=== PATIENT | female | born 1995 | race African-American/Black ===

== ENCOUNTER 2017-08-23 08:37 | Emergency (ER) | payer SELFPAY ==
[2017-08-23] MEDS ORDERED: cefTRIAXone\\ROCEPHIN 250 MG VIAL ONE (09:56)
[2017-08-23] MEDS ORDERED: Lidocaine 1% (PF) 30 ML VIAL ONE (09:56)
[2017-08-23] MEDS ORDERED: Azithromycin 250 MG TAB ONE (09:56)
[2017-08-23 09:59] LABS: Bilirubin Negative (Negative); Blood, Urine Small (Negative); Glucose, Urine (Dipstick) Negative (Negative); Ketone, Urine Negative (Negative); Nitrite Negative (Negative); Protein, Urine (Dipstick) Negative (Neg-Trace); Urobilinogen 0.2 mg/dL (0.2-1.0)
[2017-08-23 10:03] LABS: Bacteria/HPF None Seen HPF (None Seen); Hyaline Casts/LPF 0-3 HYALINE CAST LPF (0-3 Hyaline); RBC/HPF 0-3 HPF (0-3); WBC/HPF 0-3 HPF (0-3)
== END 2017-08-23 10:50 | disposition home or self-care (01) ==
LOC: ERS 08:37
DX: N89.8 Other specified noninflammatory disorders of vagina (principal)
CPT/HCPCS: 81003; 81015; 81025; 87480; 87491; 87510; 87591; 87660; 96372; J0696; J2001

== ENCOUNTER 2017-10-29 11:18 | Emergency (ER) | payer SELFPAY ==
[2017-10-29] MEDS ORDERED: Ondansetron ODT 4 MG TAB ONE (13:04)
[2017-10-29 14:34] LABS: Bilirubin Negative (Negative); Blood, Urine Negative (Negative); Clarity CLOUDY (Clear); Glucose, Urine (Dipstick) Negative (Negative); Leukocyte Negative (Negative); Nitrite Positive (Negative); Protein, Urine (Dipstick) Negative (Neg-Trace); Urobilinogen 0.2 mg/dL (0.2-1.0); pH, Urine 7.5 (5.0-9.0)
[2017-10-29 14:35] LABS: Pregnancy Test - Urine (BHCG) Negative (Negative)
[2017-10-29 14:36] LABS: Pregu Control Background? CLEAR/WHITE (CLR/WHITE); Pregu Control Bar Appear? YES (CONTROL BAR)
[2017-10-29 14:37] LABS: Bacteria/HPF 4+ HPF (None Seen); Hyaline Casts/LPF 0-3 HYALINE CAST LPF (0-3 Hyaline); WBC/HPF 0-3 HPF (0-3)
[2017-10-29 14:49] LABS: RBC/HPF 0-3 HPF (0-3); Renal Epithelial None Seen HPF (0-3); Squamous Epithelial 0-3 HPF (0-3); Transitional Epithelial NONE SEEN HPF (0-3)
== END 2017-10-29 14:46 | disposition left against medical advice (07) ==
LOC: ERS 11:18
DX: Z53.21 Procedure and treatment not carried out due to patient leaving prior to being seen by health care provider (principal)
CPT/HCPCS: 81003; 81015; 81025; 87804; Q0162

== ENCOUNTER 2017-10-29 16:46 | Inpatient (IN) | payer SELFPAY ==
[2017-10-29] MEDS ORDERED: Lorazepam 2 MG/ML VIAL ONE (16:54)
[2017-10-29] MEDS ORDERED: Vecuronium 10 MG VIAL ONE ×2 (17:30)
[2017-10-29 17:32] LABS: Hemoglobin 11.7 g/dL (12.0-16.0); Mean Corpuscular HGB CONC 33.1 g/dL (32.0-36.0); Mean Corpuscular Hemoglobin 27.9 pg (25.0-35.0); Mean Corpuscular Volume 84.3 fl (77.0-87.0); Mean Platelet Volume 7.6 fL (7.4-10.4); Platelet Count 237 thou/uL (130-400); RBC Distribution Width 12.1 % (11.5-14.5); Red Blood Cell (RBC) Count 4.18 mill/uL (4.00-5.20); White Blood Cell (WBC) Count 21.8 thou/uL (4.8-10.8)
[2017-10-29] MEDS ORDERED: Water For Inject, Bacteriostat 30 ML ONE (17:32)
[2017-10-29] MEDS ORDERED: Sterile Water 0 ML ONE (17:32)
[2017-10-29 17:37] LABS: BHCG - Serum Negative (NEGATIVE); Pregs Control Background? CLEAR/WHITE (CLR/WHITE); Pregs Control Bar Appear? YES (CONTROL BAR)
[2017-10-29 17:48] LABS: ALT (SGPT) 14 U/L (8-55); AST (SGOT) 15 U/L (5-34); Acetaminophen Less than 6.0 mcg/mL (10.0-30.0); Alcohol Less than 10 mg/dL (Less than 10); Alkaline Phosphatase 61 U/L (40-150); Anion Gap 19 mmol/L (10-20); BUN (Urea Nitrogen) 9 mg/dL (7.0-18.7); Bilirubin, Total 0.4 mg/dL (0.2-1.2); CK (CPK) 215 U/L (29-168); Calc. Creatinine Clearance 0 mL/min (70-130); Calcium 9.7 mg/dL (7.8-10.44); Carbon Dioxide 16 mmol/L (22-29); Chloride 101 mmol/L (98-107); Estimated GFR-MDRD Greater than 90; Globulin 3.6 g/dL (2.4-3.5); Glucose 178 mg/dL (70-105); Lipase 5 U/L (8-78); Protein, Total 7.6 g/dL (6.0-8.3); Salicylate Less than 8.0 mg/dL (15.0-30.0); Sodium 133 mmol/L (136-145)
[2017-10-29 17:51] LABS: CKMB 1.2 ng/mL (0-6.6); Troponin I Less than 0.010 ng/mL (< 0.028)
[2017-10-29 17:55] LABS: Band 17 % (5-11); Lymphocytes 8 % (28-48); MDiff Complete? YES; Monocytes 5 % (0-4); Neutrophil 70 % (31-61); PLT Morphology Comment Appears Adequate; Polychromasia SLIGHT = 2-3 cells (100X) (0-2/hpf)
[2017-10-29] MEDS ORDERED: Midazolam HCl 2 mg/2 ml Vial ONE (17:55)
[2017-10-29 17:57] LABS: Potassium 2.9 mmol/L (3.5-5.1)
[2017-10-29] MEDS ORDERED: cefTRIAXone\\ROCEPHIN 2 GM in Sodium Chloride 0.9% 100 ML IVPB SCH (18:00)
[2017-10-29] MEDS ORDERED: Dexamethasone 4 mg/ml Vial ONE (18:03)
[2017-10-29 18:04] LABS: Thyroid Stimulating Hormone 1.2106 uIU/mL (0.35-4.94)
--- NOTE | 2017-10-29 18:08 | RAD ---
AP VIEW OF THE CHEST: INDICATION: History of altered mental status. COMPARISON: None. IMPRESSION: No focal consolidation. COMMENTS: No comparisons are available. No pleural effusion or pneumothorax is evident. Cardiomediastinal aide houette is within normal limits. No acute osseous abnormality is evident. POS: [facility]
[2017-10-29] MEDS ORDERED: Norepinephrine 8 MG/0.9% NS 250 ML ONE (18:26)
[2017-10-29] MEDS ORDERED: Fosphenytoin Sodium 1,500 MG in Sodium Chloride 0.9% 100 ML IVPB SCH (18:30)
[2017-10-29 18:38] LABS: Actual Bicarbonate (HCO3a) 16.6 mEq/L (22-26); Base Excess (BEa) -6.8 mEq/L (0 (+/-) 2.5); CO2 Tension 25.9 mmHg (35.0-45.0); Hematocrit-ABG 30.2 % (34.0-44.0); Hemoglobin (Hb) 9.1 g/dL (11.4-15.4); O2 Tension (PaO2) 370.1 mmHg (80.0-100.0); pH, Arterial 7.42 (7.35-7.45)
[2017-10-29 18:39] LABS: ALV-art Gradient -45.475 (0-20); Analyzer IN Cardio ER; Puncture Site RR
[2017-10-29] MEDS ORDERED: Acyclovir Sodium 900 MG in Sodium Chloride 0.9% 250 ML 250 ML IVPB SCH (18:45)
[2017-10-29] MEDS ORDERED: fentaNYL Citrate/PF 2,000 MCG in Sodium Chloride 0.9% 60 ML IV SCH ×2 (18:45→21:49)
[2017-10-29 18:50] LABS: CSF Source CSF; Clarity Cloudy/Turbid (Clear); RBC Count - Manual 500 /cumm (None Seen); Tube # 4; WBC/NonHematics Count - Manual 4525 /cumm (0-5)
[2017-10-29 18:52] LABS: Color Of CSF Supernatant COLORLESS (Colorless); Tube # 2; Unspun CSF Color COLORLESS (Colorless)
[2017-10-29 18:56] LABS: CSF Source CSF; Clarity Cloudy/Turbid (Clear); Tube # 1
[2017-10-29 18:57] LABS: RBC Count - Manual 850 /cumm (None Seen); WBC/NonHematics Count - Manual 6775 /cumm (0-5)
--- NOTE | 2017-10-29 19:01 | RAD ---
AP VIEW OF THE CHEST 10/29/17 INDICATION: Altered mental status. COMPARISON: Prior exam dated 10/29/17. FINDINGS: Patient is now intubated from the comparison performed at 5:29 p.m. ET tube tip is seen 2.4 cm from the level of the jimi. There is a new left subclavian central venous catheter. No pneumothorax is grossly evident. There is a gastric catheter that projects below the left hemidiaphragm and beyond th e field of view. The lungs are clear. No pleural effusion is evident. No acute osseous abnormality is evident. IMPRESSION: 1. Interval intubation. 2. Left subclavian central venous catheter. 3. No pneumothorax. 4. No definite acute cardiopulmonary abnormality. POS: [facility]
[2017-10-29 19:04] LABS: CSF, Glucose Less than 5 mg/dl (40-70)
[2017-10-29 19:05] LABS: Bilirubin Negative (Negative); Blood, Urine Small (Negative); Clarity CLEAR (Clear); Glucose, Urine (Dipstick) 100 mg/dL (Negative); Leukocyte Negative (Negative); Nitrite Positive (Negative); Protein, Urine (Dipstick) Negative (Neg-Trace); Urobilinogen 0.2 mg/dL (0.2-1.0); pH, Urine 6.5 (5.0-9.0)
[2017-10-29 19:06] LABS: Hyaline Casts/LPF 0-3 HYALINE CAST LPF (0-3 Hyaline); Squamous Epithelial 0-3 HPF (0-3); WBC/HPF 0-3 HPF (0-3)
[2017-10-29 19:14] LABS: Medtox Reader # READER 1
[2017-10-29 19:15] LABS: Amphetamine Not Detected (NotDetected); Barbiturates Screen Not Detected (NotDetected); Benzodiazepine Screen Not Detected (NotDetected); Cocaine Metabolite Screen Not Detected (NotDetected); Medtox Control Line Valid? VALID (VALID); Methadone Not Detected (NotDetected); Methamphetamine Not Detected (NotDetected); Opiate Screen Not Detected (NotDetected); Oxycodone Screen Not Detected (NotDetected); Phencyclidine (PCP) Not Detected (NotDetected); THC/Cannabinoid Screen Not Detected (NotDetected); Tricyclic Screen Not Detected (NotDetected)
[2017-10-29 19:15] LABS: Cell Count Non Hematic 6 %; Lymphocytes 1 %; Segmented Neutrophils 93 %
[2017-10-29 19:16] LABS: Bacteria/HPF 4+ HPF (None Seen); Renal Epithelial None Seen HPF (0-3); Transitional Epithelial NONE SEEN HPF (0-3)
[2017-10-29 19:16] LABS: Cell Count Non Hematic 7 %; Segmented Neutrophils 93 %
[2017-10-29 19:23] LABS: CSF, Protein 378 mg/dL (15-40)
--- NOTE | 2017-10-29 20:58 | PDOC.PULCN ---
Pulmonology Consult: HPI - Date of Consult Date: 10/29/17 Time: 20:55 - Consult Details Reason for Consult: CCU management Requesting Physician: Jacinda - History of Present Illness HPI: KEVEN TOWNSEND is a 22 year-old F who has been feeling ill for the last 48hrs. She has had a headache. She actually came to the ER yesterday, but left because the waiting room was too crowded. When she returned today, she was poorly responsive. She was intubated for GCS of 7. Head CT was negative. LP confirmed bacterial meningitis which is probably pneumococcal based on gram stain. Pulmonology Consult: ROS - Review of Systems ROS unobtainable: due to mental status Pulmonology Consult: PMH Source: family, nurse Past Medical History: No significant PMH - Family History Pertinent family history: Grandmother had viral meningitis a few years ago - Social History Smoking Status: Never smoker Alcohol Use: none Drug Use History: none Living Situation: independent (works at [id number]) Pulmonology Consult: Meds - Medications Medications: Current Medications has received vanc, rocephin, and decadron in ER Got one dose of versed and one dose of vecuronium at 530pm - Allergies Allergies/Adverse Reactions: Allergies Allergy/AdvReac Type Severity Reaction Status Date / Time No Known Drug Allergies Allergy Verified 10/29/17 17:45 Pulmonology Consult: PE - Physical Exam Deviation from normal: unresponsive, on ventilator HEENT: sclera anicteric, oral pharynx no lesions Deviation from normal: pupils both 5mm, both non-reactive to light. Absent occucephalic reflex Deviation from normal: rigid Deviation from normal: tachy Respiratory: clear to auscultation bilaterally Gastrointestinal: soft, no distention Musculoskeletal: no edema Deviation from normal: No cranial nerve reflexes including no gag, no spont resp -: no withdrawal to noxious stimuli, areflexive except for downgoing toes B Lymphatic: no nodes Deviation from normal: comatose Skin: no rash Deviation from normal: no purpura Pulmonology Consult: Results - Labs Result Diagrams: 10/31/17 03:52 10/31/17 03:52 Lab results: Laboratory Results WBC 21.8 thou/uL (4.8-10.8) H 10/29/17 17:18 RBC 4.18 mill/uL (4.00-5.20) 10/29/17 17:18 Hgb 11.7 g/dL (12.0-16.0) L 10/29/17 17:18 Hct 35.2 % (36.0-47.0) L 10/29/17 17:18 MCV 84.3 fl (77.0-87.0) 10/29/17 17:18 MCH 27.9 pg (25.0-35.0) 10/29/17 17:18 MCHC 33.1 g/dL (32.0-36.0) 10/29/17 17:18 RDW 12.1 % (11.5-14.5) 10/29/17 17:18 Plt Count 237 thou/uL (130-400) 10/29/17 17:18 MPV 7.6 fL (7.4-10.4) 10/29/17 17:18 Neutrophils % (Manual) 70 % (31-61) H 10/29/17 17:18 Band Neuts % (Manual) 17 % (5-11) H 10/29/17 17:18 Lymphocytes % (Manual) 8 % (28-48) L 10/29/17 17:18 Monocytes % (Manual) 5 % (0-4) H 10/29/17 17:18 Neutrophils # Not Reportable 10/29/17 17:18 Lymphocytes # Not Reportable 10/29/17 17:18 Plt Morphology Comment Appears Adequate 10/29/17 17:18 Polychromasia SLIGHT = 2-3 cells (100X) (0-2/hpf) 10/29/17 17:18 Specimen Type ARTERIAL 10/29/17 18:30 Puncture Site RR 10/29/17 18:30 Bicarbonate Actual 16.6 mEq/L (22-26) L 10/29/17 18:30 ABG pH 7.42 (7.35-7.45) 10/29/17 18:30 ABG pCO2 25.9 mmHg (35.0-45.0) L* 10/29/17 18:30 ABG pO2 370.1 mmHg (80.0-100.0) H 10/29/17 18:30 ABG O2 Sat Calc/Laura 99.8 % (94.0-100.0) 10/29/17 18:30 ABG O2 Content 13.6 vol% (17.5-23.0) L 10/29/17 18:30 ABG Base Excess -6.8 mEq/L (0 (+/-) 2.5) L 10/29/17 18:30 ABG Hematocrit 30.2 % (34.0-44.0) L 10/29/17 18:30 ABG Hemoglobin 9.1 g/dL (11.4-15.4) L 10/29/17 18:30 ABG Oxyhemoglobin 97.8 % (94.0-97.0) H 10/29/17 18:30 ABG Carboxyhemoglobin 1.2 gm% (0.0-3.0) 10/29/17 18:30 ABG Methemoglobin 0.7 gm% (0.0-1.5) 10/29/17 18:30 ABG Deoxyhemoglobin 0.2 % (0.0-5.0) 10/29/17 18:30 Rober Test POSITIVE 10/29/17 18:30 A-a O2 Gradient -45.475 (0-20) L 10/29/17 18:30 Sodium 137 mmol/L (135-148) 10/29/17 18:30 Potassium 2.6 mmol/L (3.70-5.30) L 10/29/17 18:30 Chloride 104 mmol/L (98-106) 10/29/17 18:30 Ionized Calcium 1.0 mmol/L (1.12-1.30) L 10/29/17 18:30 Mode of Support AC 10/29/17 18:30 Mechanical Rate 15 min 10/29/17 18:30 Inspired O2 50 % 10/29/17 18:30 Tidal Volume 500 ml 10/29/17 18:30 PEEP or CPAP 5.0 cmH2O 10/29/17 18:30 Sodium 133 mmol/L (136-145) L 10/29/17 17:18 Potassium 2.9 mmol/L (3.5-5.1) L* 10/29/17 17:18 Chloride 101 mmol/L (98-107) 10/29/17 17:18 Carbon Dioxide 16 mmol/L (22-29) L 10/29/17 17:18 Anion Gap 19 mmol/L (10-20) 10/29/17 17:18 BUN 9 mg/dL (7.0-18.7) 10/29/17 17:18 Creatinine 0.78 mg/dL (0.6-1.1) 10/29/17 17:18 Estimated GFR (MDRD) Greater than 90 10/29/17 17:18 Glucose 178 mg/dL (70-105) H 10/29/17 17:18 Lactic Acid 3.7 mmol/L (0.5-2.2) H 10/29/17 19:02 Calcium 9.7 mg/dL (7.8-10.44) 10/29/17 17:18 Total Bilirubin 0.4 mg/dL (0.2-1.2) 10/29/17 17:18 AST 15 U/L (5-34) 10/29/17 17:18 ALT 14 U/L (8-55) 10/29/17 17:18 Alkaline Phosphatase 61 U/L (40-150) 10/29/17 17:18 Ammonia 21 umol/L (18-72) 10/29/17 17:18 Creatine Kinase 215 U/L (29-168) H 10/29/17 17:18 CK-MB (CK-2) 1.2 ng/mL (0-6.6) 10/29/17 17:18 Troponin I Less than 0.010 ng/mL (< 0.028) 10/29/17 17:18 Serum Total Protein 7.6 g/dL (6.0-8.3) 10/29/17 17:18 Albumin 4.0 g/dL (3.5-5.0) 10/29/17 17:18 Globulin 3.6 g/dL (2.4-3.5) H 10/29/17 17:18 Albumin/Globulin Ratio 1.1 g/dL (1.2-2.2) L 10/29/17 17:18 Lipase 5 U/L (8-78) L 10/29/17 17:18 TSH 3rd Generation 1.2106 uIU/mL (0.35-4.94) 10/29/17 17:18 Prolactin 31.14 ng/mL (5.18-26.53) H 10/29/17 17:18 Serum , Qual Negative (NEGATIVE) 10/29/17 17:18 Urine Color YELLOW (Yellow) 10/29/17 18:44 Urine Clarity CLEAR (Clear) 10/29/17 18:44 Urine pH 6.5 (5.0-9.0) 10/29/17 18:44 Ur Specific [place] 1.010 (1.002-1.036) 10/29/17 18:44 Urine Protein Negative mg/dL (Neg-Trace) 10/29/17 18:44 Urine Glucose (UA) 100 mg/dL (Negative) H 10/29/17 18:44 Urine Ketones Negative mg/dL (Negative) 10/29/17 18:44 Urine Blood Small (Negative) H 10/29/17 18:44 Urine Nitrite Positive (Negative) H 10/29/17 18:44 Urine Bilirubin Negative (Negative) 10/29/17 18:44 Urine Urobilinogen 0.2 mg/dL (0.2-1.0) 10/29/17 18:44 Ur Leukocyte Esterase Negative (Negative) 10/29/17 18:44 Urine RBC 4-6 HPF (0-3) 10/29/17 18:44 Urine WBC 0-3 HPF (0-3) 10/29/17 18:44 Ur Squamous Epith Cells 0-3 HPF (0-3) 10/29/17 18:44 Ur Transition Epith Cell NONE SEEN HPF (0-3) 10/29/17 18:44 Ur Renal Epithelial Cell None Seen HPF (0-3) 10/29/17 18:44 Urine Bacteria 4+ HPF (None Seen) H 10/29/17 18:44 Hyaline Casts 0-3 HYALINE CAST LPF (0-3 Hyaline) 10/29/17 18:44 Fluid Source CSF 10/29/17 17:45 Fluid Tube Number 1 10/29/17 17:45 Fluid Color Colorless (Colorless) 10/29/17 17:45 Fluid Clarity Cloudy/Turbid (Clear) H 10/29/17 17:45 Fluid WBC (Manual) 6775 /cumm (0-5) H 10/29/17 17:45 Fluid RBC (Manual) 850 /cumm (None Seen) H 10/29/17 17:45 Fluid Seg Neutrophil % 93 % H* 10/29/17 17:45 Fluid Lymphocytes % 1 % 10/29/17 17:45 Non-Hematological % 7 % 10/29/17 17:45 CSF Tube Number 2 10/29/17 17:45 CSF Color COLORLESS (Colorless) 10/29/17 17:45 CSF Supernatant Color COLORLESS (Colorless) 10/29/17 17:45 CSF Glucose Less than 5 mg/dl (40-70) L 10/29/17 17:45 CSF Total Protein 378 mg/dL (15-40) H 10/29/17 17:45 Salicylates Less than 8.0 mg/dL (15.0-30.0) L 10/29/17 17:18 Urine Opiates Screen Not Detected (NotDetected) 10/29/17 18:44 Ur Oxycodone Screen Not Detected (NotDetected) 10/29/17 18:44 Urine Methadone Screen Not Detected (NotDetected) 10/29/17 18:44 Ur Propoxyphene Screen Not Detected (NotDetected) 10/29/17 18:44 Acetaminophen Less than 6.0 mcg/mL (10.0-30.0) L 10/29/17 17:18 Ur Barbiturates Screen Not Detected (NotDetected) 10/29/17 18:44 Ur Tricyclics Screen Not Detected (NotDetected) 10/29/17 18:44 Ur Phencyclidine Scrn Not Detected (NotDetected) 10/29/17 18:44 Ur Amphetamines Screen Not Detected (NotDetected) 10/29/17 18:44 U Methamphetamines Scrn Not Detected (NotDetected) 10/29/17 18:44 U Benzodiazepines Scrn Not Detected (NotDetected) 10/29/17 18:44 U Cocaine Metab Screen Not Detected (NotDetected) 10/29/17 18:44 U Cannabinoids Screen Not Detected (NotDetected) 10/29/17 18:44 Drug Screen Comment () 10/29/17 18:44 Plasma Alcohol Less than 10 mg/dL (Less than 10) 10/29/17 17:18 - ABG Interpretation Attestation: I reviewed and interpreted this ABG. ABG Results: ABG pH 7.42 (7.35-7.45) 10/29/17 18:30 ABG pCO2 25.9 mmHg (35.0-45.0) L* 10/29/17 18:30 ABG O2 Sat Calc/Laura 99.8 % (94.0-100.0) 10/29/17 18:30 ABG Base Excess -6.8 mEq/L (0 (+/-) 2.5) L 10/29/17 18:30 Interpretation: metabolic acidosis - Radiology Interpretation Chest x-ray Status: image reviewed by me (CXR clear. ETT ok, L-SC central line ok, OGT ok) Pulmonology Consult: A/P - Problem (1) Meningitis due to Streptococcus pneumoniae Current Visit: Yes Code(s): G00.1 - PNEUMOCOCCAL MENINGITIS Status: Acute (2) Septic shock with acute organ dysfunction due to pneumococcus Current Visit: Yes Code(s): A40.3 - SEPSIS DUE TO STREPTOCOCCUS PNEUMONIAE; R65.21 - SEVERE SEPSIS WITH SEPTIC SHOCK Status: Acute (3) Encephalopathy acute Current Visit: Yes Code(s): G93.40 - ENCEPHALOPATHY, UNSPECIFIED Status: Acute (4) Acute respiratory failure Current Visit: Yes Code(s): J96.00 - ACUTE RESPIRATORY FAILURE, UNSP W HYPOXIA OR HYPERCAPNIA Status: Acute Qualifiers: Respiratory failure complication: unspecified whether with hypoxia or hypercapnia Qualified Code(s): J96.00 - Acute respiratory failure, unspecified whether with hypoxia or hypercapnia (5) Metabolic acidosis Current Visit: Yes Code(s): E87.2 - ACIDOSIS Status: Acute (6) Hypokalemia Current Visit: Yes Code(s): E87.6 - HYPOKALEMIA Status: Acute - Time Time: 50% of the time was spent in coordination of care (as documented) at patient's floor/unit and/or counseling patient. Discussed with pts Mother, Father, and extended family. 70 min CC time Time with Patient: greater than 70 minutes - Plan Plan: IV ABX - Vanc, rocephin ID consult IV decadron Ventilator support replace K levophed for BP support IVF monitor neuro status, she looks at or near brain at time of my exam Anay everett
[2017-10-29] MEDS ORDERED: Propofol 1,000 MG/100 ML VIAL IV PRN (21:49)
[2017-10-29] MEDS ORDERED: DISCONTINUE PREVIOUS NARCOTIC PAIN MEDICATIONS AND BENZODIAZEPINES FS SCH (21:49)
[2017-10-29] MEDS ORDERED: Lorazepam 2 MG/ML VIAL SLOW IVP PRN ×2 (21:49→22:55)
[2017-10-29] MEDS ORDERED: Morphine 4 MG/ML VIAL IV PRN (21:50)
[2017-10-29] MEDS ORDERED: Ondansetron ODT 4 MG TAB SL PRN (21:53)
[2017-10-29] MEDS ORDERED: Sodium Chloride 0.9% 1,000 ML IV SCH (21:53)
[2017-10-29] MEDS ORDERED: Norepinephrine 8 MG/250 ML BAG IVPB PRN (21:53)
[2017-10-29] MEDS ORDERED: Ondansetron HCl/PF 4 MG/2 ML Vial IVP PRN (21:53)
[2017-10-29 22:22] VITALS: BMI 29.1
[2017-10-29] MEDS ORDERED: Norepinephrine 8 MG/0.9% NS 250 ML IVPB SCH (22:55)
[2017-10-29] MEDS ORDERED: CCU Electrolyte Replacement 1 EACH FS ONE (22:55)
[2017-10-29] MEDS ORDERED: Acetaminophen 650 MG Suppository PR PRN (22:55)
[2017-10-29] MEDS ORDERED: Acetaminophen 325 MG TAB PO PRN (22:55)
[2017-10-29] MEDS ORDERED: Dextrose 5% in Water 1,000 ML IV PRN (22:55)
[2017-10-29] MEDS ORDERED: Dextrose 50% Abboject 50 ML SYRINGE SLOW IVP PRN (22:55)
[2017-10-29] MEDS ORDERED: Amiodarone HCl 450 MG, Admixture Fee 1 EACH in Dextrose 5% in Water 250 ML IVPB SCH ×3 (23:00)
[2017-10-29] MEDS ORDERED: Amiodarone HCl 150 MG, Admixture Fee 1 EACH in Dextrose 5% in Water 100 ML IVPB SCH ×3 (23:00)
[2017-10-29 23:15] LABS: Lactic Acid 2.7 mmol/L (0.5-2.2)
--- NOTE | 2017-10-29 23:41 | HP ---
DATE OF ADMISSION: 10/29/2017 TIME OF SERVICE: 5 hours. CHIEF COMPLAINT: Unresponsiveness. HISTORY OF PRESENT ILLNESS: Disclaimer: Entirety of the history is taken from the chart, family and boyfriend at the bedside, and ER physician. The patient is unresponsive and intubated and unable to give any history. Ms. Toledo is a 22-year-old female with no past medical history who has slight headache yesterd ay. She took some Excedrin, she was doing okay, this morning had a little bit more headache. She ac tually came to the ER for evaluation, but the wait was too long and she decided not to stay, went [facility]. She took some Excedrin for headache. It was acting normal around the 6:30 this morning. She was seen again this afternoon and was found unresponsive. She had no tonic-clonic activity, no e vidence of bowel or bladder incontinence, but her arms and legs were "tense." EMS was activated. kristina was brought to the emergency department for evaluation. Workup here revealed an elevated white blood cell count with left shift, tachycardia, fever, and lact ic acidosis. She was intubated due to GCS score of 7 and has been hypotensive and now requiring Levo phed for blood pressure support. LP was performed that showed cloudy fluid. Tube 1 and tube 4 both had 4-6000 white blood cells, 93% granulocytes, and glucose that was undetectable and total protein o f 378 consistent with bacterial meningitis. Gram stain has now come back positive for gram positive cocci in pairs. Pulmonary Critical Care was consulted. We are called for admission. The patient is currently intubated. She has not had any sedation since 5:30 this afternoon, she has not had any paralytics since 5:30 this afternoon. Last dose of Versed was around 1745 hours. On arrival, her temperature was 99.2, she did spike up to 102.7. Currently, heart rates in the 110s, blood pressure is normal on 20 mcg of Levophed and she is satting well on ventilator support. REVIEW OF SYSTEMS: Unobtainable due to mental status. PAST MEDICAL HISTORY: None. PAST SURGICAL HISTORY: None. HOME MEDICATIONS: None. ALLERGIES: NKDA. FAMILY HISTORY: Negative for clotting or bleeding disorder, no immune dysfunction. She has had no r ecent travel. SOCIAL HISTORY: Negative for habits x3. She lives locally with her boyfriend. 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 We did discuss her current status and in the curr ent time, she is a full code. PHYSICAL EXAMINATION: VITAL SIGNS: Temperature current 99.2, pulse 119, blood pressure 111/61, respiratory rate 15, sattin g 100% on mechanical ventilation. GENERAL: She is unresponsive. Her pupils are 2-3 mm and minimally reactive, but equal. She does ignacio ve dull eyes. She has no gag reflex. She is not withdrawing her hands or her feet from any painful stimuli. I spoke with Dr. Duron, he said that he was able to elicit downgoing toes in the bilatera l to a plantar stimulation. I did not see the same when I saw her about 20 minutes later. HEENT: She is normocephalic, atraumatic. Mucous membranes are moist. She has an oral endotracheal tube at 23 cm at the lips. She has an OG tube present at 60 cm at the lips. NECK: Rigid, but movable. She has no lymphadenopathy. She has no JVD. She has no thyromegaly. Sh e had normal carotid upstrokes without bruits. LUNGS: Clear. She has good air movement. Symmetrical chest excursion and mechanically ventilated. There are no wheezes. CARDIOVASCULAR: She is tachycardic, but regular. I hear S1, S2. I do not appreciate murmurs. Ther e is no rubs. ABDOMEN: Soft, it is nondistended and nontympanitic. She has hypoactive bowel sounds present in all 4 quadrants. There is no abnormal discolorations. EXTREMITIES: Show trace pedal edema. Capillary refill is slightly delayed at 3 seconds. Her feet a nd hands are little cool, but she does have a palpable posterior tibial, dorsalis pedis, and radial a rteries. NEUROLOGIC: As above. SKIN: Negative for rash or lesions. LABORATORY DATA: Sodium 133, potassium 2.9, chloride 101, bicarb 16, BUN 9, creatinine 0.78, calcium 9.7, glucose 178. She had normal LFTs. Prolactin was elevated at 31.14, CK 215 and TSH 1.21. Lact ic acid was 3.7, pH was 7.42, pCO2 of 26, pO2 of 350 and oxygen sats of 100%, measured bicarbonate is 16.6. White blood cell count of 21.8. She has 75% granulocytes and 17% bands. Gives a grand total of 93% granulocytes. Hemoglobin is 11.7, hematocrit 35.2, platelet count of 237,000. She has gram positive cocci in pairs. Influenza was negative. Tube 4CSF show a white blood cell cou nt of 4525 with red blood cells of 500, 93% segs. Glucose less than 5 and protein of 378. Tube 1 ignacio d the similar findings. Urinalysis showed 4+ bacteria, but no blood cells and no epithelial cells. Urine drug screen was negative. RADIOGRAPHIC STUDIES: She had a CT of the brain per my eye showed no acute abnormalities, no abscess es, no shifts. It was noncontrasted study. Chest x-ray, post-intubation showed endotracheal tube in place. She had no identified pneumothorax and did show the newly placed left subclavian central jose ous catheter. ASSESSMENT AND PLAN: 1. Pneumococcal meningitis. She has a significant case. We will continue antibiotics with vancomyc in 2 grams IV q.8 hours with a goal trough of 20-25 for now and Rocephin 2 grams IV q.12 hours. Once we his stability back, we can hopefully discontinue the vancomycin. 2. Septic shock. The patient is requiring pressors to maintain blood pressure support, despite adeq uate fluid resuscitation. We will continue aggressive fluids. We will wean Levophed as tolerated. Lactic acid was 3.7 with a bicarbonate of 16. She has normal renal function at this point. Pulmonar y Critical Care is on the case and seen her and is helping me to manage at this point. 3. Metabolic encephalopathy. The patient's CSF glucose at the time of the LP was undetectable. Thi s is likely the main driving force for her altered mental status. On top of that, the associated cer ebritis/meningoencephalitis associated with her central nervous system infection is not helping. We will continue on Decadron at 10 mg IV q.6 hours at least for the next 24-48 hours. At this time, her fever has broken, heart rate is still elevated, white blood cell count was elevated with a left shif t. We will repeat labs in the morning. 4. Acute hypoxic respiratory failure secondary to metabolic encephalopathy and GCS score of 7: She was urgently intubated in the ER. Pulmonary Critical Care is managing her ventilator. We appreciate their assistance. ABG did reveal a pO2 in the 350s. She is oxygenating well. I am more concerned about her central nervous system function at this point. At this time, she is a full code and we will continue support aggressively. I did talk to the family , very frankly and explained to them right now, it is literally hour by hour. I am very concerned th at she has not had any paralytics or sedatives in several hours and is still not responsive. 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 I like her to get some better imaging of her brain when she is little more stable. We will transfer to the CCU tonight and maintained.
[2017-10-30] MEDS: Sodium Chloride 0.9% 1,000 ML IV SCH ×2 (00:02→05:21)
[2017-10-30] MEDS: Dexamethasone 10 MG in Sodium Chloride 0.9% 50 ML IVPB SCH ×3 (00:10→13:27)
[2017-10-30] MEDS: Insulin Regular 300 UNITS/3 ML VIAL SC PRN ×2 (00:36→06:49)
[2017-10-30 04:39] LABS: Band 22 % (5-11); Eosinophils 1 % (0-10); Hemoglobin 13.8 g/dL (12.0-16.0); Lymphocytes 5 % (28-48); MDiff Complete? YES; Mean Corpuscular HGB CONC 30.7 g/dL (32.0-36.0); Mean Corpuscular Hemoglobin 26.2 pg (25.0-35.0); Mean Corpuscular Volume 85.4 fl (77.0-87.0); Mean Platelet Volume 7.6 fL (7.4-10.4); Monocytes 2 % (0-4); Neutrophil 70 % (31-61); PLT Morphology Comment Appears Adequate; Platelet Count 319 thou/uL (130-400); RBC Distribution Width 12.5 % (11.5-14.5); Red Blood Cell (RBC) Count 5.28 mill/uL (4.00-5.20); White Blood Cell (WBC) Count 28.7 thou/uL (4.8-10.8)
[2017-10-30 05:33] LABS: Albumin 4.3 g/dL (3.5-5.0)
[2017-10-30 05:34] LABS: Magnesium 2.7 mg/dL (1.7-2.2)
[2017-10-30 05:36] LABS: Globulin 4.4 g/dL (2.4-3.5); Glucose 328 mg/dL (70-105); Protein, Total 8.7 g/dL (6.0-8.3)
[2017-10-30 05:37] LABS: Anion Gap 12 mmol/L (10-20); Carbon Dioxide 16 mmol/L (22-29)
[2017-10-30 05:38] LABS: Bilirubin, Total 0.4 mg/dL (0.2-1.2); Calcium 11.2 mg/dL (7.8-10.44); Chloride 143 mmol/L (98-107); Potassium 2.3 mmol/L (3.5-5.1); Sodium 169 mmol/L (136-145)
[2017-10-30 05:39] LABS: Alkaline Phosphatase 73 U/L (40-150); Calc. Creatinine Clearance 109 mL/min (70-130); Estimated GFR-MDRD 77
[2017-10-30 05:40] LABS: BUN (Urea Nitrogen) 9 mg/dL (7.0-18.7)
[2017-10-30 05:41] LABS: AST (SGOT) 16 U/L (5-34)
[2017-10-30 05:42] LABS: ALT (SGPT) 15 U/L (8-55)
[2017-10-30 05:50] LABS: Phosphorus Less than 1.0 mg/dL (2.3-4.7)
[2017-10-30 05:54] LABS: Actual Bicarbonate (HCO3a) 15.2 mEq/L (22-26); Base Excess (BEa) -11.6 mEq/L (0 (+/-) 2.5); CO2 Tension 37.3 mmHg (35.0-45.0); Calcium, Ionized 1.7 mmol/L (1.12-1.30); Hematocrit-ABG 34.1 % (34.0-44.0); Hemoglobin (Hb) 13.9 g/dL (11.4-15.4); O2 Tension (PaO2) 169.5 mmHg (80.0-100.0)
[2017-10-30 06:02] LABS: pH, Arterial 7.23 (7.35-7.45)
[2017-10-30 06:03] LABS: ALV-art Gradient 33.775 (0-20); Puncture Site RR
[2017-10-30] MEDS: Sodium Chloride 0.45% 1,000 ML IV SCH ×2 (06:20→13:40)
[2017-10-30] MEDS ORDERED: CCU ELECTROLYTE REPLACEMENT PROTOCOL FS PRN (07:03)
[2017-10-30] MEDS ORDERED: Magnesium Oxide 400 MG TAB PO PRN ×2 (07:03)
[2017-10-30] MEDS ORDERED: Potassium Phosphate 15 MMOL in Sodium Chloride 0.9% 250 ML 250 ML IV PRN (07:03)
[2017-10-30] MEDS ORDERED: Potassium Chloride 20 MEQ TAB PO PRN (07:03)
[2017-10-30] MEDS ORDERED: Potassium Chloride 40 MEQ in Sodium Chloride 0.9% 250 ML 250 ML IVPB PRN (07:03)
[2017-10-30] MEDS ORDERED: Magnesium 2 GM/NS 0.9% 100 ML 2 GM in Premix Bag 1 BAG IVPB PRN (07:03)
[2017-10-30] MEDS ORDERED: Potassium Phosphate 9 MMOL in Sodium Chloride 0.9% 100 ML IVPB PRN (07:03)
[2017-10-30] MEDS ORDERED: Potassium Phosphate 12 MMOL in Sodium Chloride 0.9% 250 ML 250 ML IV PRN (07:03)
[2017-10-30] MEDS ORDERED: Potassium Chloride 40 MEQ in Premix Bag 1 BAG IVPB PRN (07:03)
[2017-10-30] MEDS ORDERED: Potassium Phosphate 40 MMOL in Sodium Chloride 0.9% 500 ML IVPB SCH (07:30)
[2017-10-30] MEDS ORDERED: FLU VACC QS2017-18 36 mo. & older 0.5 ML SYRINGE IM ONE (09:00)
[2017-10-30] MEDS ORDERED: Famotidine/PF 20 mg/2ml Vial SLOW IVP SCH (09:00)
[2017-10-30] MEDS ORDERED: cefTRIAXone\\ROCEPHIN 2 GM in Sodium Chloride 0.9% 100 ML IVPB SCH (09:00)
--- NOTE | 2017-10-30 09:06 | RAD ---
PORTABLE CHEST 1 VIEW: DATE: 10/30/17. TIME: 4:32 a.m. HISTORY: Respiratory failure. FINDINGS/IMPRESSION: No significant interval change is seen since the previous day's exam. POS: [facility]
--- NOTE | 2017-10-30 09:31 | PRG ---
DATE OF SERVICE: 10/30/2017 A 35 minutes critical care time. SUBJECTIVE: The patient is totally unresponsive. She has received no sedation since 5:30 yesterday. On neurologic exam, her pupils are 5 mm and it is nonreactive. She has no oculocephalic reflex. S he has no gag reflex. She has no withdrawal to pain on nail bed, any of the 4 extremities. She has no Babinski reflex. She has no spontaneous respirations. OBJECTIVE: VITAL SIGNS: Currently, pulse 101, blood pressure 117/58, O2 sat 100%, respiratory rate 24, temperat ure 97.0. Total intake, not quantitated; output 5775. HEENT: Otherwise, unremarkable. NECK: No JVD. LUNGS: Clear. CARDIOVASCULAR: S1, S2, slightly tachycardic. ABDOMEN: Soft, no hepatosplenomegaly. EXTREMITIES: No edema. LABORATORY DATA: Sodium is up to 169, potassium 2.3, chloride 143, CO2 16, BUN 9, creatinine 1.1, gl ucose 328. Serum total protein 8.7, albumin 4.3. PH 7.23, pCO2 of 37, pO2 169 on SIMV rate 14, tida l volume 500, PEEP 5, pressure support 10, FiO2 35%. White blood cell count 28.7, hemoglobin 13.8, h ematocrit 45.1, platelet count 319. X-RAY FINDINGS: Chest x-ray shows no mass, effusion or infiltrate. ASSESSMENT: 1. Pneumococcal meningitis. 2. Suspected clinical brain . 3. Septic shock - still requiring Levophed. 4. Development of central diabetes insipidus. PLAN: 1. Cerebral brain flow study to confirm clinical brain . 2. DDAVP has been administered. 3. Follow serial sodium values - a test that ordered midnight was canceled by someone in the system and that explains the discrepancy, otherwise sodium was not checked earlier. In reality, I do not th ink this makes much difference as she has an unresponsive neurologic exam when I saw her last night i n the ER. The prognosis in this case is terminal. I will speak with the family later.
--- NOTE | 2017-10-30 10:19 | NM ---
NUCLEAR MEDICINE CEREBRAL BLOOD FLOW STUDY: DATE: 10/30/17. TIME: 9:50 a.m. HISTORY: A 22-year-old female with severely altered mental status, unresponsive, suspected brain . TECHNIQUE: IV injection of 30 mCi of Technetium 99m-MDP injected IV. Dynamic anterior flow scintigraphy of head . Immediate static images of head in 3 views. FINDINGS: There is absence of cerebral blood flow. IMPRESSION: Brain confirmed. POS: [facility]
[2017-10-30 12:04] LABS: BUN (Urea Nitrogen) 11 mg/dL (7.0-18.7); Calc. Creatinine Clearance 111 mL/min (70-130); Calcium 10.3 mg/dL (7.8-10.44); Carbon Dioxide 15 mmol/L (22-29); Estimated GFR-MDRD 78; Glucose 303 mg/dL (70-105); Phosphorus Less than 1.0 mg/dL (2.3-4.7); Sodium 173 mmol/L (136-145)
[2017-10-30 12:05] VITALS: TEMP 98.8
[2017-10-30 12:20] LABS: Chloride Greater than 145 mmol/L (98-107)
[2017-10-30 13:43] LABS: BUN (Urea Nitrogen) 10 mg/dL (7.0-18.7); Calc. Creatinine Clearance 121 mL/min (70-130); Calcium 9.3 mg/dL (7.8-10.44); Carbon Dioxide 16 mmol/L (22-29); Chloride Greater than 145 mmol/L (98-107); Estimated GFR-MDRD 87; Glucose 243 mg/dL (70-105); Phosphorus 1.4 mg/dL (2.3-4.7); Potassium 2.9 mmol/L (3.5-5.1); Sodium Greater than 175 mmol/L (136-145)
--- NOTE | 2017-10-30 13:46 | CON ---
DATE OF CONSULTATION: 10/30/2017 CONSULTING PHYSICIAN: Hospitalist Service. IMPRESSION: 1. The patient's nuclear imaging and clinical exam are consistent with brain . 2. Pneumococcal meningitis. PLAN: Dr. Duron will discuss the results with her parents when they arrive. HISTORY OF PRESENT ILLNESS: Ms. Toledo is a 22-year-old black female, who came into the emergency room with complaints of headache. She sat in the waiting room for quite sometime and became frustrated. She decide to go back home and take some medication. Her boyfriend found her on the floor what appe ared to be a tonic seizure. She was rushed back to the emergency room for evaluation. Her CT scan o f the brain showed some diffuse cerebral edema. There was sulcal effacement diffusely. She had a aleida mbar puncture, which showed evidence of pneumococcal meningitis. She has been started on antibiotics and pressors. She had a nuclear perfusion study done this morning. Unfortunately, there is no evid ence of intracerebral flow. PHYSICAL EXAMINATION: VITAL SIGNS: Blood pressure is 145/86, pulse 119 and saturations 100%. HEENT: Her pupils are fixed and dilated. Doll's head maneuver did not elicit any deviation. There was no corneal response to stimulation. She had no gag response. NEUROLOGIC: Her peripheral exam showed no response to pain in any of the extremities. There was no spontaneous movement. Given the clinical findings, it appears that she has and the results will be discussed with h er parents.
[2017-10-30 14:11] VITALS: BP 120/62
[2017-10-30 17:56] LABS: BUN (Urea Nitrogen) 12 mg/dL (7.0-18.7); Calc. Creatinine Clearance 127 mL/min (70-130); Calcium 8.8 mg/dL (7.8-10.44); Carbon Dioxide 15 mmol/L (22-29); Estimated GFR-MDRD Greater than 90; Glucose 141 mg/dL (70-105); Phosphorus Less than 1.0 mg/dL (2.3-4.7); Potassium 2.9 mmol/L (3.5-5.1); Sodium Greater than 175 mmol/L (136-145)
[2017-10-30 17:59] LABS: Chloride Greater than 145 mmol/L (98-107)
[2017-10-30 18:53] LABS: Hemoglobin 11.5 g/dL (12.0-16.0); Mean Corpuscular HGB CONC 32.3 g/dL (32.0-36.0); Mean Corpuscular Hemoglobin 27.4 pg (25.0-35.0); Mean Corpuscular Volume 84.9 fl (77.0-87.0); Mean Platelet Volume 7.8 fL (7.4-10.4); Platelet Count 251 thou/uL (130-400); RBC Distribution Width 12.6 % (11.5-14.5); Red Blood Cell (RBC) Count 4.18 mill/uL (4.00-5.20); White Blood Cell (WBC) Count 20.7 thou/uL (4.8-10.8)
[2017-10-30 18:56] LABS: INR-International Normal Ratio 1.5; PTT 29.2 SEC (22.9-36.1); Prothrombin Time 18.9 SEC (12.0-14.7)
[2017-10-30 19:01] LABS: Band 16 % (5-11); Lymphocytes 8 % (28-48); MDiff Complete? YES; Neutrophil 75 % (31-61); PLT Morphology Comment Appears Adequate; Polychromasia SLIGHT = 2-3 cells (100X) (0-2/hpf); Reactive Lymphocytes 1 % (0-10); Tear Drops SLIGHT = 2-5 cells (100X) (0-1/hpf)
[2017-10-30 19:14] LABS: Troponin I 0.274 ng/mL (< 0.028)
[2017-10-30 19:15] LABS: ALT (SGPT) 14 U/L (8-55); AST (SGOT) 15 U/L (5-34); Albumin 3.5 g/dL (3.5-5.0); Alkaline Phosphatase 60 U/L (40-150); Bilirubin, Total 0.3 mg/dL (0.2-1.2); Globulin 3.5 g/dL (2.4-3.5)
[2017-10-30 19:20] LABS: Bilirubin, Direct 0.1 mg/dL (0.1-0.3); Lipase Less than 4 U/L (8-78); Magnesium 2.1 mg/dL (1.7-2.2)
[2017-10-30] MEDS ORDERED: Vecuronium 10 MG VIAL ONE (21:30)
[2017-10-30 21:54] LABS: BUN (Urea Nitrogen) 13 mg/dL (7.0-18.7); Calc. Creatinine Clearance 118 mL/min (70-130); Calcium 8.8 mg/dL (7.8-10.44); Carbon Dioxide 14 mmol/L (22-29); Estimated GFR-MDRD 85; Glucose 205 mg/dL (70-105); Phosphorus Less than 1.0 mg/dL (2.3-4.7); Potassium 2.9 mmol/L (3.5-5.1); Sodium 171 mmol/L (136-145)
[2017-10-30 21:54] LABS: Vancomycin, Trough 45.8 ug/mL
[2017-10-30 21:55] LABS: Chloride Greater than 145 mmol/L (98-107)
[2017-10-31] MEDS ORDERED: Sodium Bicarb 50 MEQ/50 ML Abboject 8.4% SYRINGE ONE (02:42)
[2017-10-31 04:20] LABS: #Lymphocytes 2.4 thou/uL (1.20-3.40); #Monocytes 1.3 thou/uL (0.11-0.59); #Neutrophils 17.9 thou/uL (1.40-6.50); %Eosinophils 0.2 % (0.0-10.0); %Lymphocytes 10.9 % (28.0-48.0); %Monocytes 6.1 % (0.0-4.0); %Neutrophils 82.7 % (31.0-61.0); Hemoglobin 10.1 g/dL (12.0-16.0); Mean Corpuscular Hemoglobin 27.6 pg (25.0-35.0); Mean Corpuscular Volume 83.6 fl (77.0-87.0); Mean Platelet Volume 8.3 fL (7.4-10.4); Platelet Count 199 thou/uL (130-400); RBC Distribution Width 12.6 % (11.5-14.5); Red Blood Cell (RBC) Count 3.66 mill/uL (4.00-5.20); White Blood Cell (WBC) Count 21.7 thou/uL (4.8-10.8)
[2017-10-31 04:37] LABS: ALT (SGPT) 14 U/L (8-55); AST (SGOT) 17 U/L (5-34); Alkaline Phosphatase 58 U/L (40-150); BUN (Urea Nitrogen) 10 mg/dL (7.0-18.7); Bilirubin, Total 0.4 mg/dL (0.2-1.2); Calc. Creatinine Clearance 127 mL/min (70-130); Carbon Dioxide 17 mmol/L (22-29); Estimated GFR-MDRD Greater than 90; Globulin 3.2 g/dL (2.4-3.5); Glucose 223 mg/dL (70-105); Magnesium 1.7 mg/dL (1.7-2.2); Phosphorus 2.2 mg/dL (2.3-4.7); Potassium 3.5 mmol/L (3.5-5.1); Protein, Total 6.2 g/dL (6.0-8.3); Sodium 175 mmol/L (136-145)
[2017-10-31 06:07] LABS: Chloride Greater than 145 mmol/L (98-107)
[2017-10-31] MEDS ORDERED: Albuterol Sulfate 2.5 mg/3 ml Neb ONE (08:26)
--- NOTE | 2017-10-31 08:54 | DS ---
DATE OF ADMISSION: 10/29/2017 DATE OF : 10/30/2017 ADMITTING DIAGNOSIS: Acute pneumococcal meningitis. DIAGNOSIS/REASON FOR : Pneumococcal meningitis. SECONDARY DIAGNOSES: 1. Acute respiratory failure. 2. Septic shock. 3. Hypernatremia. CONSULTANTS: Involved in the care are, 1. Dr. Duron from [facility]. 2. Dr. Jorge Ansari. PROCEDURES DONE DURING THIS ADMISSION: 1. Cerebral flow scan, which did not show any evidence of intracerebral flow suggestive of brain . 2. Lumbar puncture showing an evidence of pneumococcal meningitis with gram- positive cocci in pairs on Gram stain. HISTORY OF PRESENT ILLNESS AND HOSPITAL COURSE: In brief, this is a 22-year- old black female, who came into the emergency room with complaints of headache, and she sat in the waiting room for some time and became frustrated and she decided to go back home, took some medication and her boyfriend found her on the floor with a tonic seizure and was rushed to the emergency. CT scan of the brain showed some diffuse cerebral edema, and lumbar puncture was done, which showed an evidence of meningococcal meningitis. Patient had to be intubated and was started on pressors with IV antibiotics, started on IV vancomycin and Rocephin 2 grams meningitis dose. The patient was also started on IV Decadron and Levophed was also started for blood pressure support. The patient had no response, even though sedation was not started. The patient was completely motionless. She had no pupillary reflex. There was no active breathing. The patient was completely dependent on the mechanical ventilator. Dr. Duron discussed with the family and also called organ donation center, who discussed with the family and decided to withdraw the life support. The patient was declared at 11:45 a.m. in the presence of Dr. Duron and neurologist who confirmed no intracerebral flow. I spent 30 minutes with this patient on the day of her . [facility]PITALGodfrey
--- NOTE | 2017-10-31 13:58 | RAD ---
RADIOGRAPH CHEST 1 VIEW: Date: 10/31/17. Time: 4:33 a.m. HISTORY: A 22-year-old female in respiratory failure. COMPARISON: 10/30/18 at 8:17 p.m. FINDINGS: Endotracheal tube, left subclavian central venous catheter, and NG tube, remain. No cardiomegaly or pneumothorax identified. There is mild haziness in the bilateral lower lung zones. The left hazines s appears to be new since the prior study. This is nonspecific. Lateral costophrenic angles remain sharp. No consolidation. IMPRESSION: 1. Mild interstitial densities in the bilateral lower lobes, left greater than right. 2. No interval change in life support lines. JENNIFER [] POS: [facility]
--- NOTE | 2017-11-02 08:59 | CT ---
CT OF THE BRAIN WITHOUT CONTRAST: Indication: Altered mental status. Comparison: None. FINDINGS: There is mild motion artifact slightly limiting image detail. No definite acute infarct, hemorrhage, or hydrocephalus is present. The septum pellucidum and third ventricle are midline. There is mild muc osal thickening within the left ethmoid air cells. Mastoid air cells are clear. IMPRESSION: 1. No acute intracranial abnormality. 2. Mild paranasal sinus disease. 3. Some limitation to the exam. POS: [facility]
--- NOTE | 2017-11-04 11:33 | PQF ---
KEVEN TOWNSEND ADRIENNE MONTES [id number] CLINICAL DOCUMENTATION CLARIFICATION FORM: POST DISCHARGE Please clarify if "Septic shock" can be further specified. SUMMARY; "Pneumococcal Meningitis", "lumbar puncture, showed evidence of Meningococcal Meningitis." "Septic shock". Please check appropriate box(s): [ x ] Shock (type) due to: [ ] Other (specify) [ x ] Sepsis [ ] Hypovolemia [ ] Hemorrhagic [ ] [employer] infection without sepsis [ ] Sepsis due to: (Pna, UTI, gangrenous gall bladder, etc.) [ x ] Severe sepsis with acute organ dysfunction of: Encephalopathy, Acute respiratoy failure, SHANTE, cardiogenic shock (Examples: respiratory failure, encephalopathy, acute kidney failure, other) [ ] Localized infection without sepsis [ ] Other diagnosis [ ] Unable to determine In addition, please specify: Present on Admission (POA): [ x ] Yes [ ] No [ ] Unable to determine Please exercise your independent, professional judgment in responding to the clarification form. Clinical indicators are provided on the bottom of this form for your review. Thank you. CLINICAL INDICATORS - SIGNS / SYMPTOMS / LABS Acute respiratory failure Altered mental status GCS 7 Metabolic encephalopathy Diabetes insipidus Fever or hypothermia (<96.8 F/36 C or > 100.4 F/38C) Respiratory rate >22/min, Hypoxemia, SBP <100mmHg Metabolic acidosis Lactic Acid >2mmol/L, Shock-hypotension resistant to IV fluid boluses WBC count (>12,000/mm^4 or <4000/mm^3 or 10% neuts, 10% bands) Hyperglycemia in absence of diabetes mellitus Positive CSF cultures RISK FACTORS Infection [employer] Clinical brain TREATMENTS: Initiation Sepsis Protocol ICU Daily CBC Blood/ CSF cultures IV antibiotics - broad spectrum IV Fluids Vasopressors,meds (This form is maintained as a part of the permanent medical record) 2014 [employer] All Rights Reserved [email or web address] [phone] [place]
--- NOTE | 2017-11-05 14:51 | EKG ---
Test Reason : Blood Pressure : / mmHG Vent. Rate : 100 BPM Atrial Rate : 100 BPM P-R Int : 148 ms QRS Dur : 092 ms QT Int : 372 ms P-R-T Axes : 053 063 -04 degrees QTc Int : 479 ms Poor data quality, interpretation may be adversely affected Normal sinus rhythm Incomplete right bundle branch block Prolonged QT Abnormal ECG Confirmed by SELENA VENEGAS, DONAVAN ([id number]), publication editor BRIANA RIVAS ([id number]) on 11/05/2017 2:50:49 PM Referred By: Confirmed By:DONAVAN WALTERS MD
== END 2017-10-30 11:45 | disposition expired | DRG 871 ==
LOC: ERS 16:46 → CCU 19:36
PROVIDERS: ADMIT Internal Medicine; ATTEND Internal Medicine
PROC: 5A1935Z Respiratory Ventilation, Less than 24 Consecutive Hours (ICD-10-PCS; principal; 2017-10-29)
PROC: 0BH17EZ Insertion of Endotracheal Airway into Trachea, Via Natural or Artificial Opening (ICD-10-PCS; 2017-10-29)
PROC: 009U3ZX Drainage of Spinal Canal, Percutaneous Approach, Diagnostic (ICD-10-PCS; 2017-10-29)
PROC: 05H633Z Insertion of Infusion Device into Left Subclavian Vein, Percutaneous Approach (ICD-10-PCS; 2017-10-29)
DX: A41.9 Sepsis, unspecified organism (principal); A39.0 Meningococcal meningitis; J96.01 Acute respiratory failure with hypoxia; G93.41 Metabolic encephalopathy; E23.2 Diabetes insipidus; G00.1 Pneumococcal meningitis; R40.2112 Coma scale, eyes open, never, at arrival to emergency department; R40.2212 Coma scale, best verbal response, none, at arrival to emergency department; R65.21 Severe sepsis with septic shock; R40.2342 Coma scale, best motor response, flexion withdrawal, at arrival to emergency department; E87.0 Hyperosmolality and hypernatremia
CPT/HCPCS: 31500; 36415; 36416; 36556; 51702; 62270; 70450; 71010; 71045; 78610; 80053; 80202; 80306; 80307; 82140; 82150; 82248; 82553; 82805; 82945; 83605; 83690; 83735; 84100; 84146; 84157; 84443; 84484; 84703; 85025; 85060; 85610; 85730; 87040; 87070; 87077; 87186; 87205; 87252; 89051; 93005; 94002; 94003; 96361; 96365; 96366; 96368; 96375; 99292; A4216; A9521; J0133; J0282; J0696; J1100; J1815; J2060; J2250; J2597; J3010; J3370; J3480; J7050; J7070; J7611; Q2009; S0028

== ENCOUNTER 2017-10-30 11:45 | Inpatient (IN) | payer OTHER, SELFPAY ==
[2017-10-30 17:48] LABS: Actual Bicarbonate (HCO3a) 14.6 mEq/L (22-26); Base Excess (BEa) -7.3 mEq/L (0 (+/-) 2.5); Calcium, Ionized 1.3 mmol/L (1.12-1.30); Hematocrit-ABG 22.5 % (34.0-44.0); Hemoglobin (Hb) 11.3 g/dL (11.4-15.4); O2 Tension (PaO2) 135.5 mmHg (80.0-100.0); pH, Arterial 7.46 (7.35-7.45)
[2017-10-30 17:49] LABS: ALV-art Gradient 90.375 (0-20); CO2 Tension 20.9 mmHg (35.0-45.0); Puncture Site RR
[2017-10-30] MEDS ORDERED: Norepinephrine 8 MG/250 ML BAG IVPB PRN (18:31)
[2017-10-30 19:18] VITALS: BMI 26.5
[2017-10-30] MEDS ORDERED: Albuterol Sulfate 2.5 mg/3 ml Neb NEB PRN (20:01)
[2017-10-30] MEDS ORDERED: LEVOTHYROXINE SODIUM IVPB SCH (20:15)
[2017-10-30] MEDS ORDERED: SODIUM CHLORIDE 0.9% IVPB SCH (20:15)
[2017-10-30] MEDS ORDERED: Vecuronium 10 MG VIAL IVP SCH (20:15)
[2017-10-30] MEDS ORDERED: Vasopressin 40 UNIT, Admixture Fee 1 EACH in Sodium Chloride 0.9% 100 ML IV SCH (20:15)
[2017-10-30] MEDS ORDERED: Vecuronium Bromide 50 MG in Sodium Chloride 0.9% 250 ML 250 ML IV SCH (20:15)
[2017-10-30 20:30] LABS: Bilirubin Negative (Negative); Blood, Urine Small (Negative); Clarity TURBID (Clear); Glucose, Urine (Dipstick) Negative (Negative); Leukocyte Negative (Negative); Nitrite Negative (Negative); Protein, Urine (Dipstick) 30 mg/dL (Neg-Trace); Specific Gravity, Urine 1.026 (1.002-1.036); Urobilinogen 0.2 mg/dL (0.2-1.0); pH, Urine 5.5 (5.0-9.0)
[2017-10-30 20:34] LABS: Bacteria/HPF None Seen HPF (None Seen); RBC/HPF 0-3 HPF (0-3)
[2017-10-30 20:45] LABS: Hyaline Casts/LPF 4-6 HYALINE CAST LPF (0-3 Hyaline)
[2017-10-30 20:46] LABS: Crystals/HPF 2+ AMORPH URATES HPF (Negative)
--- NOTE | 2017-10-30 21:20 | RAD ---
AP VIEW OF THE CHEST; INDICATIONS: History of STA protocol. IMPRESSION: The lungs are clear. ET tube, gastric catheter, and left subclavian central venous catheter are unch anged. The cardiomediastinal silhouette is within normal limits. IMPRESSION: 1. No acute cardiopulmonary abnormality demonstrated. 2. Stable tubes and lines. POS: [facility]
[2017-10-30] MEDS: cefTRIAXone\\ROCEPHIN 1 GM, Syringe 0.4 ML in Sterile Water 9.6 ML SLOW IVP SCH (21:27)
[2017-10-30] MEDS: Sodium Chloride 0.45% 1,000 ML IV SCH ×2 (21:28→23:47)
[2017-10-30] MEDS ORDERED: Levothyroxine 100 MCG SDV IVP SCH (22:00)
[2017-10-30] MEDS ORDERED: Insulin Regular 300 UNITS/3 ML VIAL IVP SCH (22:00)
[2017-10-30] MEDS ORDERED: methylPREDNISolone Sod Succ 2 gm/30 ml Vial IVP SCH (22:00)
[2017-10-30] MEDS ORDERED: Dextrose 50% Abboject 50 ML SYRINGE SLOW IVP SCH (22:00)
[2017-10-30] MEDS: Albuterol Sulfate 2.5 mg/3 ml Neb NEB SCH (22:08)
[2017-10-30] MEDS: Levothyroxine Sodium 400 MCG in Sodium Chloride 0.9% 100 ML IVPB SCH (22:47)
[2017-10-30] MEDS: Phytonadione 10 MG/ML AMP SLOW IVP SCH (22:50)
[2017-10-30] MEDS: Insulin Regular 100 units/100 ml in NS IVPB SCH (23:32)
[2017-10-30] MEDS ORDERED: Sodium Chloride 0.45% 1,000 ML IV SCH (23:45)
[2017-10-31 01:38] LABS: Actual Bicarbonate (HCO3a) 13.3 mEq/L (22-26); Base Excess (BEa) -9.8 mEq/L (0 (+/-) 2.5); CO2 Tension 21.7 mmHg (35.0-45.0); Calcium, Ionized 1.2 mmol/L (1.12-1.30); Hematocrit-ABG 19.9 % (34.0-44.0); Hemoglobin (Hb) 9.8 g/dL (11.4-15.4); O2 Tension (PaO2) 168.8 mmHg (80.0-100.0); pH, Arterial 7.41 (7.35-7.45)
[2017-10-31 01:39] LABS: ALV-art Gradient 57.475 (0-20); Puncture Site LINE
[2017-10-31] MEDS ORDERED: Sodium Bicarb 50 MEQ/50 ML Abboject 8.4% SYRINGE IVP SCH ×2 (01:45→07:55)
[2017-10-31] MEDS: Phytonadione 10 MG/ML AMP SLOW IVP SCH (03:02)
[2017-10-31] MEDS: Albuterol Sulfate 2.5 mg/3 ml Neb NEB SCH ×6 (03:15→22:57)
[2017-10-31 04:31] LABS: Hemoglobin A1c 5.2 % (4.0-6.0)
[2017-10-31 04:32] LABS: PTT 25.7 SEC (22.9-36.1)
[2017-10-31 04:33] LABS: INR-International Normal Ratio 1.8; Prothrombin Time 21.8 SEC (12.0-14.7)
[2017-10-31] MEDS: Vancomycin HCl 1 GM in Premix Bag 1 BAG IVPB SCH ×2 (04:35→07:45)
[2017-10-31] MEDS: Sodium Chloride 0.45% 1,000 ML IV SCH ×9 (04:35→23:57)
[2017-10-31 04:38] LABS: Gamma GT (GGT) 18 U/L (9-36); LDH 220 U/L (125-220); Lipase Less than 4 U/L (8-78)
[2017-10-31] MEDS ORDERED: Vancomycin HCl 1 GM in Premix Bag 1 BAG IVPB SCH (05:30)
[2017-10-31] MEDS ORDERED: Albumin 25% 25 GM/100 ML BOT IVPB SCH ×2 (05:30→20:30)
[2017-10-31 06:22] LABS: Vancomycin, Trough 21.4 ug/mL
[2017-10-31 06:39] LABS: Actual Bicarbonate (HCO3a) 15.3 mEq/L (22-26); Calcium, Ionized 1.1 mmol/L (1.12-1.30); Hematocrit-ABG 17.5 % (34.0-44.0); O2 Tension (PaO2) 166.2 mmHg (80.0-100.0); pH, Arterial 7.43 (7.35-7.45)
[2017-10-31 06:40] LABS: ALV-art Gradient 58.025 (0-20); CO2 Tension 23.9 mmHg (35.0-45.0); Puncture Site ALINE
[2017-10-31] MEDS ORDERED: Magnesium 2 GM/NS 0.9% 50 ML 2 GM in Premix Bag 1 BAG IVPB SCH (06:45)
[2017-10-31] MEDS ORDERED: Potassium Phosphate 15 MMOL in Sodium Chloride 0.9% 250 ML 250 ML IVPB SCH (06:45)
[2017-10-31 09:44] LABS: Actual Bicarbonate (HCO3a) 19.2 mEq/L (22-26); Base Excess (BEa) -5.2 mEq/L (0 (+/-) 2.5); CO2 Tension 32.8 mmHg (35.0-45.0); Hematocrit-ABG 14.4 % (34.0-44.0); Hemoglobin (Hb) 7.7 g/dL (11.4-15.4); pH, Arterial 7.39 (7.35-7.45)
[2017-10-31 09:46] LABS: O2 Tension (PaO2) 606.9 mmHg (80.0-100.0)
[2017-10-31 10:00] LABS: Bilirubin Negative (Negative); Blood, Urine Moderate (Negative); Clarity CLOUDY (Clear); Glucose, Urine (Dipstick) Negative (Negative); Leukocyte Small (Negative); Nitrite Negative (Negative); Protein, Urine (Dipstick) Negative (Neg-Trace); Specific Gravity, Urine 1.008 (1.002-1.036); Urobilinogen 0.2 mg/dL (0.2-1.0)
[2017-10-31 10:02] LABS: Bacteria/HPF None Seen HPF (None Seen); Hyaline Casts/LPF 4-6 HYALINE CAST LPF (0-3 Hyaline); Pathc Cast-AUWi Flag 1.35 (0-2.49)
[2017-10-31 10:04] LABS: Yeast-AUWi Flag 1257.3 (0-25.0)
[2017-10-31 10:19] LABS: Renal Epithelial None Seen HPF (0-3); Transitional Epithelial NONE SEEN HPF (0-3); Yeast-All Forms 4+ HPF (None Seen)
[2017-10-31] MEDS: cefTRIAXone\\ROCEPHIN 1 GM, Syringe 0.4 ML in Sterile Water 9.6 ML SLOW IVP SCH ×2 (10:22→23:55)
[2017-10-31] MEDS ORDERED: Albuterol Sulfate 2.5 mg/3 ml Neb ONE (11:12)
[2017-10-31 11:51] LABS: Base Excess (BEa) -4.4 mEq/L (0 (+/-) 2.5); CO2 Tension 33.7 mmHg (35.0-45.0); Hematocrit-ABG 14.7 % (34.0-44.0); Hemoglobin (Hb) 7.9 g/dL (11.4-15.4); O2 Tension (PaO2) 154.7 mmHg (80.0-100.0); pH, Arterial 7.39 (7.35-7.45)
[2017-10-31 11:52] LABS: ALV-art Gradient 57.625 (0-20); Puncture Site ALINE
[2017-10-31 12:09] LABS: Mean Corpuscular HGB CONC 31.9 g/dL (32.0-36.0); Mean Corpuscular Volume 84.5 fl (77.0-87.0); Mean Platelet Volume 7.7 fL (7.4-10.4); Platelet Count 157 thou/uL (130-400); RBC Distribution Width 12.6 % (11.5-14.5); Red Blood Cell (RBC) Count 2.98 mill/uL (4.00-5.20); White Blood Cell (WBC) Count 15.1 thou/uL (4.8-10.8)
[2017-10-31 12:15] LABS: PTT 38.2 SEC (22.9-36.1)
[2017-10-31 12:42] LABS: ALT (SGPT) 14 U/L (8-55); AST (SGOT) 16 U/L (5-34); Albumin 3.5 g/dL (3.5-5.0); Alkaline Phosphatase 51 U/L (40-150); Anion Gap 18 mmol/L (10-20); BUN (Urea Nitrogen) 6 mg/dL (7.0-18.7); Bilirubin, Total 0.3 mg/dL (0.2-1.2); Calc. Creatinine Clearance 134 mL/min (70-130); Calcium 7.4 mg/dL (7.8-10.44); Carbon Dioxide 20 mmol/L (22-29); Chloride 139 mmol/L (98-107); Estimated GFR-MDRD Greater than 90; Globulin 2.6 g/dL (2.4-3.5); Glucose 201 mg/dL (70-105); Magnesium 2.1 mg/dL (1.7-2.2); Phosphorus 4.5 mg/dL (2.3-4.7); Potassium 3.5 mmol/L (3.5-5.1); Protein, Total 6.1 g/dL (6.0-8.3); Sodium 173 mmol/L (136-145)
[2017-10-31] MEDS ORDERED: Phytonadione 10 MG in Sodium Chloride 0.9% 50 ML IVPB SCH (14:45)
[2017-10-31] MEDS: Levothyroxine Sodium 400 MCG in Sodium Chloride 0.9% 100 ML IVPB SCH (14:45)
[2017-10-31] MEDS: Insulin Regular 100 units/100 ml in NS IVPB SCH (14:46)
[2017-10-31] MEDS ORDERED: Vasopressin 20 UNIT, Admixture Fee 1 EACH in Sodium Chloride 0.9% 250 ML 250 ML IV SCH (15:00)
[2017-10-31] MEDS ORDERED: Sodium Chloride 0.45% 1,000 ML IV SCH (15:00)
[2017-10-31] MEDS ORDERED: Albuterol Sulfate 2.5 mg/3 ml Neb NEB PRN (15:01)
[2017-10-31 16:38] LABS: Actual Bicarbonate (HCO3a) 20.1 mEq/L (22-26); Base Excess (BEa) -4.3 mEq/L (0 (+/-) 2.5); CO2 Tension 33.8 mmHg (35.0-45.0); Hematocrit-ABG 13.8 % (34.0-44.0); Hemoglobin (Hb) 7.5 g/dL (11.4-15.4); pH, Arterial 7.39 (7.35-7.45)
[2017-10-31 16:40] LABS: O2 Tension (PaO2) 557.6 mmHg (80.0-100.0)
[2017-10-31 16:41] LABS: Puncture Site ALINE
[2017-10-31] MEDS: Potassium Chloride 40 MEQ in Premix Bag 1 BAG IVPB PRN (18:12)
--- NOTE | 2017-10-31 18:17 | RAD ---
AP CHEST: Indication: History of organ donation. Comparison: 10-31-2017 at 4:33 a.m. IMPRESSION: Examination is not appreciably changed. Tubes and lines are stable. No pneumothorax is evident. POS: [facility]
[2017-10-31 18:44] LABS: Vancomycin, Trough 5.4 ug/mL
[2017-10-31 20:33] LABS: #Lymphocytes 1.4 thou/uL (1.20-3.40); #Monocytes 0.7 thou/uL (0.11-0.59); #Neutrophils 12.9 thou/uL (1.40-6.50); %Basophils 0.1 % (0.0-1.0); %Eosinophils 0.1 % (0.0-10.0); %Lymphocytes 9.5 % (28.0-48.0); %Monocytes 4.8 % (0.0-4.0); %Neutrophils 85.5 % (31.0-61.0); Hemoglobin 7.7 g/dL (12.0-16.0); Mean Corpuscular HGB CONC 31.9 g/dL (32.0-36.0); Mean Corpuscular Hemoglobin 27.3 pg (25.0-35.0); Mean Corpuscular Volume 85.4 fl (77.0-87.0); Mean Platelet Volume 7.7 fL (7.4-10.4); Platelet Count 124 thou/uL (130-400); RBC Distribution Width 12.7 % (11.5-14.5); Red Blood Cell (RBC) Count 2.83 mill/uL (4.00-5.20); White Blood Cell (WBC) Count 15.1 thou/uL (4.8-10.8)
[2017-10-31 20:39] LABS: INR-International Normal Ratio 1.9; PTT 35.3 SEC (22.9-36.1); Prothrombin Time 22.1 SEC (12.0-14.7)
[2017-10-31 20:51] LABS: ALT (SGPT) 14 U/L (8-55); AST (SGOT) 18 U/L (5-34); Albumin 3.4 g/dL (3.5-5.0); Alkaline Phosphatase 53 U/L (40-150); Anion Gap 15 mmol/L (10-20); BUN (Urea Nitrogen) 5 mg/dL (7.0-18.7); Bilirubin, Direct 0.2 mg/dL (0.1-0.3); Bilirubin, Total 0.2 mg/dL (0.2-1.2); Calc. Creatinine Clearance 136 mL/min (70-130); Calcium 7.3 mg/dL (7.8-10.44); Carbon Dioxide 20 mmol/L (22-29); Chloride 141 mmol/L (98-107); Estimated GFR-MDRD Greater than 90; Globulin 2.4 g/dL (2.4-3.5); Glucose 151 mg/dL (70-105); Lipase Less than 4 U/L (8-78); Phosphorus 3.4 mg/dL (2.3-4.7); Potassium 4.2 mmol/L (3.5-5.1); Protein, Total 5.8 g/dL (6.0-8.3); Sodium 172 mmol/L (136-145)
[2017-10-31 21:02] LABS: Bilirubin Negative (Negative); Blood, Urine Moderate (Negative); Clarity CLOUDY (Clear); Glucose, Urine (Dipstick) Negative (Negative); Leukocyte Negative (Negative); Nitrite Negative (Negative); Protein, Urine (Dipstick) 100 mg/dL (Neg-Trace); Specific Gravity, Urine 1.014 (1.002-1.036); Urobilinogen 0.2 mg/dL (0.2-1.0)
[2017-10-31 21:05] LABS: Bacteria/HPF None Seen HPF (None Seen); WBC/HPF 21-50 HPF (0-3)
[2017-10-31 21:06] LABS: Yeast-AUWi Flag 125.2 (0-25.0)
[2017-10-31 21:15] LABS: Yeast-All Forms 2+ HPF (None Seen)
[2017-10-31 21:16] LABS: Hyaline Casts/LPF NONE SEEN LPF (0-3 Hyaline)
--- NOTE | 2017-10-31 21:59 | RAD ---
AP CHEST: Indication: Evaluate and treat; organ donor. IMPRESSION: Multiple cardiac leads overlie the patient. There are portions of the patient's ventilator tubing ove rlying the right chest wall that limits detail. The examination does not appear appreciably changed. Tubes and lines are similar. No pneumothorax is evident. POS: [facility]
[2017-10-31 23:10] LABS: Actual Bicarbonate (HCO3a) 18.6 mEq/L (22-26); CO2 Tension 32.9 mmHg (35.0-45.0); Calcium, Ionized 1.1 mmol/L (1.12-1.30); Hematocrit-ABG 13.5 % (34.0-44.0); Hemoglobin (Hb) 7.1 g/dL (11.4-15.4); O2 Tension (PaO2) 209.2 mmHg (80.0-100.0); pH, Arterial 7.37 (7.35-7.45)
[2017-10-31 23:13] LABS: ALV-art Gradient 39.675 (0-20); Puncture Site ALINE
[2017-10-31] MEDS ORDERED: Calcium Gluconate 4.6 MEQ in Sodium Chloride 0.9% 100 ML IVPB SCH (23:45)
[2017-11-01] MEDS: Levothyroxine Sodium 400 MCG in Sodium Chloride 0.9% 100 ML IVPB SCH (00:20)
[2017-11-01] MEDS ORDERED: Nitroglycerin 50 MG/250 ML BOT 250 ML ONE (00:40)
[2017-11-01] MEDS ORDERED: Nitroglycerin 50 MG/250 ML BOT 250 ML IVPB PRN (00:44)
[2017-11-01] MEDS ORDERED: Micafungin 100 MG in Sodium Chloride 0.9% 100 ML IVPB SCH (01:00)
[2017-11-01] MEDS: Sodium Chloride 0.45% 1,000 ML IV SCH ×2 (01:28→04:57)
[2017-11-01] MEDS: Albuterol Sulfate 2.5 mg/3 ml Neb NEB SCH ×3 (03:04→07:46)
[2017-11-01 03:17] LABS: Actual Bicarbonate (HCO3a) 20.1 mEq/L (22-26); Base Excess (BEa) -4.7 mEq/L (0 (+/-) 2.5); CO2 Tension 35.3 mmHg (35.0-45.0); Calcium, Ionized 1.1 mmol/L (1.12-1.30); Hematocrit-ABG 13.4 % (34.0-44.0); Hemoglobin (Hb) 6.9 g/dL (11.4-15.4); pH, Arterial 7.37 (7.35-7.45)
[2017-11-01 04:12] LABS: #Lymphocytes 1.3 thou/uL (1.20-3.40); #Monocytes 0.6 thou/uL (0.11-0.59); #Neutrophils 11.7 thou/uL (1.40-6.50); %Basophils 0.2 % (0.0-1.0); %Eosinophils 0.1 % (0.0-10.0); %Lymphocytes 9.6 % (28.0-48.0); %Monocytes 4.2 % (0.0-4.0); %Neutrophils 85.9 % (31.0-61.0); Mean Corpuscular HGB CONC 32.8 g/dL (32.0-36.0); Mean Corpuscular Volume 85.4 fl (77.0-87.0); Mean Platelet Volume 7.9 fL (7.4-10.4); Platelet Count 114 thou/uL (130-400); RBC Distribution Width 12.9 % (11.5-14.5); White Blood Cell (WBC) Count 13.6 thou/uL (4.8-10.8)
[2017-11-01 04:18] LABS: INR-International Normal Ratio 1.8
[2017-11-01 04:19] LABS: PTT 37.1 SEC (22.9-36.1)
[2017-11-01 04:37] LABS: ALT (SGPT) 17 U/L (8-55); AST (SGOT) 21 U/L (5-34); Albumin 4.1 g/dL (3.5-5.0); Alkaline Phosphatase 57 U/L (40-150); Anion Gap 13 mmol/L (10-20); BUN (Urea Nitrogen) 7 mg/dL (7.0-18.7); Bilirubin, Direct 0.2 mg/dL (0.1-0.3); Bilirubin, Total 0.3 mg/dL (0.2-1.2); Calc. Creatinine Clearance 131 mL/min (70-130); Calcium 8.3 mg/dL (7.8-10.44); Carbon Dioxide 21 mmol/L (22-29); Chloride 137 mmol/L (98-107); Estimated GFR-MDRD Greater than 90; Globulin 2.7 g/dL (2.4-3.5); Glucose 165 mg/dL (70-105); Lipase 6 U/L (8-78); Phosphorus 3.2 mg/dL (2.3-4.7); Potassium 3.3 mmol/L (3.5-5.1); Protein, Total 6.8 g/dL (6.0-8.3); Sodium 168 mmol/L (136-145)
[2017-11-01] MEDS: Potassium Chloride 40 MEQ in Premix Bag 1 BAG IVPB PRN (05:20)
[2017-11-01 05:29] VITALS: TEMP 97.7
[2017-11-01 06:44] LABS: Vancomycin, Trough 1.1 ug/mL
[2017-11-01 07:33] LABS: Hemoglobin 8.6 g/dL (12.0-16.0); Mean Corpuscular HGB CONC 32.1 g/dL (32.0-36.0); Mean Corpuscular Hemoglobin 27.7 pg (25.0-35.0); Mean Corpuscular Volume 86.3 fl (77.0-87.0); Mean Platelet Volume 8.5 fL (7.4-10.4); Platelet Count 132 thou/uL (130-400); RBC Distribution Width 13.1 % (11.5-14.5); White Blood Cell (WBC) Count 15.2 thou/uL (4.8-10.8)
[2017-11-01 07:46] LABS: INR-International Normal Ratio 1.6; PTT 32.6 SEC (22.9-36.1); Prothrombin Time 19.6 SEC (12.0-14.7)
[2017-11-01 07:48] LABS: ALT (SGPT) 17 U/L (8-55); AST (SGOT) 22 U/L (5-34); Alkaline Phosphatase 62 U/L (40-150); Anion Gap 15 mmol/L (10-20); BUN (Urea Nitrogen) 8 mg/dL (7.0-18.7); Bilirubin, Total 0.4 mg/dL (0.2-1.2); Calc. Creatinine Clearance 136 mL/min (70-130); Calcium 8.2 mg/dL (7.8-10.44); Carbon Dioxide 19 mmol/L (22-29); Chloride 138 mmol/L (98-107); Estimated GFR-MDRD Greater than 90; Globulin 2.7 g/dL (2.4-3.5); Glucose 193 mg/dL (70-105); Phosphorus 3.2 mg/dL (2.3-4.7); Potassium 4.1 mmol/L (3.5-5.1); Protein, Total 6.7 g/dL (6.0-8.3); Sodium 168 mmol/L (136-145)
[2017-11-01 07:49] VITALS: BP 116/63
[2017-11-01 08:01] LABS: Band 21 % (5-11); Bite Cells SLIGHT = 2-5 cells (100X) (0-1/hpf); Lymphocytes 11 % (28-48); MDiff Complete? YES; Monocytes 5 % (0-4); Neutrophil 63 % (31-61); Nucleated RBC 1 % (0); PLT Morphology Comment Appears Adequate; Polychromasia SLIGHT = 2-3 cells (100X) (0-2/hpf); Target Cells SLIGHT = 2-5 cells (100X) (0-1/hpf)
[2017-11-01 08:11] LABS: Actual Bicarbonate (HCO3a) 18.6 mEq/L (22-26); Base Excess (BEa) -6.7 mEq/L (0 (+/-) 2.5); CO2 Tension 36.2 mmHg (35.0-45.0); Calcium, Ionized 1.1 mmol/L (1.12-1.30); Hematocrit-ABG 19.7 % (34.0-44.0); Hemoglobin (Hb) 8.8 g/dL (11.4-15.4); O2 Tension (PaO2) 191.9 mmHg (80.0-100.0); pH, Arterial 7.33 (7.35-7.45)
[2017-11-01 08:15] LABS: Puncture Site ART LINE
--- NOTE | 2017-11-01 08:38 | ULT ---
PRELIMINARY REPORT/[facility]/EMERGENCY AFTER HOURS PROCEDURE: EXAM: US Abdomen Ltd Other EXAM DATE/TIME: Exam ordered 11/01/2017 3:32 AM CLINICAL HISTORY: 22 years old, female; Screening exam; Other: Liver donor; Patient HX: Liver measurements only TECHNIQUE: Real-time ultrasound of the abdomen ltd other with image documentation. COMPARISON: No relevant prior studies available. FINDINGS: Provided measurements of the liver are 18.5 x 17.5 x 2.5 cm. See images. IMPRESSION: Provided measurements of the liver are 18.5 x 17.5 x 2.5 cm. See images. Thank you for allowing us to participate in the care of your patient. Dictated and Authenticated by: Jayce Miller MD 11/01/2017 3:48 AM Central Time ([place] & [place]) FINAL INTERPRETATION LIMITED ABDOMINAL ULTRASOUND: 11/01/2017 HISTORY: Measurements of liver for donation. FINDINGS: I agree with the preliminary [facility] report dictated by Dr. Miller. The provided measurements of the liver are 18.5 x 17.5 x 2.5 cm. IMPRESSION: Provided liver measurements, as detailed above. POS: [facility]
--- NOTE | 2017-11-01 08:50 | RAD ---
PORTABLE CHEST: History: Intubation. Comparison: 10-31-17 FINDINGS: Endotracheal and NG tubes are in satisfactory position. Left subclavian line is unchanged in position . No focal infiltrative process is noted. IMPRESSION: Stable exam. POS: [facility]
[2017-11-01 09:28] LABS: Bilirubin Negative (Negative); Blood, Urine Large (Negative); Clarity CLOUDY (Clear); Glucose, Urine (Dipstick) 100 mg/dL (Negative); Leukocyte Negative (Negative); Nitrite Negative (Negative); Protein, Urine (Dipstick) 100 mg/dL (Neg-Trace); Specific Gravity, Urine 1.019 (1.002-1.036); Urobilinogen 0.2 mg/dL (0.2-1.0)
[2017-11-01 09:30] LABS: Bacteria/HPF None Seen HPF (None Seen)
[2017-11-01 09:31] LABS: Pathc Cast-AUWi Flag 3.79 (0-2.49); Yeast-AUWi Flag 462.3 (0-25.0)
[2017-11-01 09:56] LABS: Hyaline Casts/LPF 0-3 HYALINE CAST LPF (0-3 Hyaline); Other Casts/LPF 0-3 FINELY GRAN LPF (0-3 Hyaline)
[2017-11-01 09:57] LABS: Manual Microscopic Reviewed? No Path Casts Seen; Renal Epithelial None Seen HPF (0-3); Transitional Epithelial NONE SEEN HPF (0-3); Yeast-All Forms 2+ HPF (None Seen)
[2017-11-01] MEDS ORDERED: Mannitol 12.5 GM/50 ML ONE ×2 (10:31→10:41)
[2017-11-01] MEDS ORDERED: Furosemide 20 MG/2 ML VIAL ONE ×2 (10:31→10:33)
[2017-11-01 18:47] LABS: O2 Tension (PaO2) 532.9 mmHg (80.0-100.0)
[2017-11-01 18:48] LABS: Puncture Site ALINE
--- NOTE | 2017-11-10 19:25 | EKG ---
Test Reason : NOW Blood Pressure : / mmHG Vent. Rate : 102 BPM Atrial Rate : 102 BPM P-R Int : 174 ms QRS Dur : 080 ms QT Int : 364 ms P-R-T Axes : 038 066 261 degrees QTc Int : 474 ms Sinus tachycardia Abnormal ECG When compared with ECG of 29-OCT-2017 16:55, (Unconfirmed) T wave inversion now evident in Lateral leads Confirmed by ANDRIA CORREA ([id number]) on 11/10/2017 7:24:51 PM Referred By: Mackenzie WHELAN Confirmed By:ANDRIA CORREA
== END 2017-11-01 10:03 | disposition expired | DRG 443 ==
LOC: CCU 11:45 → 2SW 17:12 → UNDOADMIN 17:12 → CCU 18:02 → 2SW 18:02 → CCU 10-31 04:07 → UNDODISIN 11-01 10:03
PROVIDERS: ADMIT Internal Medicine; ATTEND Internal Medicine
DX: Z52.6 Liver donor (principal)
CPT/HCPCS: 36415; 36416; 36430; 71010; 71045; 76700; 80053; 80202; 81001; 82150; 82248; 82805; 82977; 83036; 83615; 83690; 83735; 84100; 85025; 85384; 85610; 85730; 86850; 86900; 86901; 87205; 93005; 93010; 93306; 94003; 94640; A4216; J0696; J1100; J1815; J1940; J2150; J2248; J2597; J2930; J3370; J3430; J3475; J3480; J7050; J7611; P9016; P9035; P9047; P9059